=== PATIENT | male | born 1955 | race Caucasian/White ===

== ENCOUNTER 2017-08-05 08:21 | Outpatient (CLI) | payer BC ==
--- NOTE | 2017-08-05 10:50 | CT ---
CT CHEST WITHOUT CONTRAST: Multiple axial tomograms were obtained through the chest without IV enhancement. HISTORY: Followup pulmonary nodule. Comparison is made to the chest CT of 01/14/17. FINDINGS: The rounded mildly spiculated nodule in the lingula is again seen. This measures approximately 10 mm AP dimension in the axial plane and does not appear significantly changed from the prior exam. There is a calcified nodule posterior left lung base measuring approximately 4 mm which is stable. C alcified left hilar lymph nodes are again seen. Images through the upper abdomen are unremarkable. There are granulomatous calcifications in the spleen. IMPRESSION: 1. Stable chest CT findings. The lingular nodule is unchanged. 2. Evidence of prior granulomatous process with calcified left hilar lymph nodes and granulomatous c alcification in the spleen again noted. POS: [facility]
== END 2017-08-05 08:22 | disposition home or self-care (01) ==
LOC: CT 08:21
PROVIDERS: ATTEND Internal Medicine Critical Care Medicine
DX: R91.1 Solitary pulmonary nodule (principal); D73.89 Other diseases of spleen
CPT/HCPCS: 71250

== ENCOUNTER 2017-09-05 07:26 | Outpatient (CLI) | payer BC ==
--- NOTE | 2017-09-05 15:10 | PET ---
NUCLEAR MEDICINE FDG PET CT: (Positron Emission Tomography) DATE: 09/05/17 HISTORY: 62-year-old male with solitary pulmonary nodule. COMPARISON: None. TECHNIQUE: IV injection F-18 Fluorodeoxyglucose (FDG) dose: 12.5 mCi PET and attenuation-correction CT performed from skull base to proximal thighs. FINDINGS: SUV (standard uptake value) numbers given are maximum SUV's: The 10 mm pulmonary nodule located centrally in the left lung, probably in the posterior aspect of th e lingula, is not FDG-avid. There are no abnormally FDG-avid lesions anywhere in the neck, chest, abdomen, or pelvis. There are numerous bilateral renal calculi. IMPRESSION: 1. The 1 cm noncalcified pulmonary nodule in the central, posteromedial aspect of the lingual, is no t hypermetabolic. 2. Recommend 6 month to 1 year follow-up noncontrast chest CT. 3. Bilateral nephrolithiasis (calculus of kidney). SURYA Patel POS: [facility]
== END 2017-09-05 07:27 | disposition home or self-care (01) ==
LOC: PET 07:26
PROVIDERS: ATTEND Internal Medicine Critical Care Medicine
DX: R91.1 Solitary pulmonary nodule (principal); N20.0 Calculus of kidney; E11.9 Type 2 diabetes mellitus without complications
CPT/HCPCS: 78815; A9552

== ENCOUNTER 2018-06-11 06:07 | Emergency (ER) | payer BC ==
[2018-06-11] MEDS ORDERED: Morphine 4 MG/ML VIAL ONE ×2 (06:42→08:35)
[2018-06-11 06:52] LABS: #Eosinphils 0.1 thou/uL (0.0-0.7); #Lymphocytes 1.3 thou/uL (1.20-3.40); #Monocytes 0.5 thou/uL (0.11-0.59); #Neutrophils 12.1 thou/uL (1.40-6.50); %Basophils 0.3 % (0.0-1.0); %Eosinophils 0.5 % (0.0-10.0); %Lymphocytes 9.3 % (21.0-51.0); %Monocytes 3.3 % (0.0-10.0); %Neutrophils 86.5 % (42.0-75.0); Mean Corpuscular HGB CONC 34.1 g/dL (32.0-36.0); Mean Corpuscular Hemoglobin 33.9 pg (27.0-31.0); Mean Corpuscular Volume 99.5 fL (78.0-98.0); Mean Platelet Volume 6.7 fL (7.4-10.4); Platelet Count 234 thou/uL (130-400); RBC Distribution Width 12.1 % (11.5-14.5); Red Blood Cell (RBC) Count 4.72 mill/uL (4.70-6.10)
[2018-06-11 06:58] LABS: Bilirubin Negative (Negative); Blood, Urine Large (Negative); Clarity CLEAR (Clear); Glucose, Urine (Dipstick) 250 mg/dL (Negative); Leukocyte Negative (Negative); Nitrite Negative (Negative); Protein, Urine (Dipstick) Negative (Neg-Trace); Specific Gravity, Urine 1.019 (1.002-1.036)
[2018-06-11 07:00] LABS: Bacteria/HPF None Seen HPF (None Seen); Hyaline Casts/LPF 0-3 HYALINE CAST LPF (0-3 Hyaline); RBC/HPF GREATER THAN 50-TNTC HPF (0-3); Squamous Epithelial None Seen HPF (0-3); WBC/HPF 0-3 HPF (0-3)
[2018-06-11 07:14] LABS: ALT (SGPT) 16 U/L (8-55); AST (SGOT) 15 U/L (5-34); Albumin 4.6 g/dL (3.4-4.8); Alkaline Phosphatase 76 U/L (40-150); Anion Gap 14 mmol/L (10-20); BUN (Urea Nitrogen) 12 mg/dL (8.4-25.7); Bilirubin, Total 0.6 mg/dL (0.2-1.2); Calc. Creatinine Clearance 0 mL/min (70-130); Calcium 9.5 mg/dL (7.8-10.44); Carbon Dioxide 24 mmol/L (23-31); Chloride 100 mmol/L (98-107); Estimated GFR-MDRD 90; Globulin 2.7 g/dL (2.4-3.5); Glucose 178 mg/dL (80-115); Lipase 55 U/L (8-78); Potassium 4.2 mmol/L (3.5-5.1); Protein, Total 7.3 g/dL (5.8-8.1); Sodium 134 mmol/L (136-145)
--- NOTE | 2018-06-11 08:55 | CT ---
ABDOMEN AND PELVIS CT SCAN WITH IV CONTRAST: Date: 06/11/18 HISTORY: 62-year-old male with history of right lower quadrant abdominal pain since this morning. FINDINGS: Lung bases are clear. The visualized liver, gallbladder, pancreas, spleen, and adrenal glands are unr emarkable. Nonobstructing bilateral renal calculi. There is an obstructing proximal right ureteral ca lculus measuring 0.5 x 0.7 cm with some proximal hydronephrosis, as well as some right perirenal fat stranding. Focal 2.9 cm diameter aneurysm of the infrarenal abdominal aorta just above the level of t he bifurcation. No abscess or abnormal fluid collection. No CT evidence for acute appendicitis. Varia ble severity multilevel canal, lateral recess, and foraminal stenosis, particularly at L3-L4 and L4-L 5. Left-sided pseudoarthrosis between the left L5 lateral mass and the left sacral ala with sclerosis and subchondral cystic change. IMPRESSION: 1. Obstructing 0.5 x 0.7 cm diameter proximal right ureteral calculus with proximal upper collecting system dilatation and perirectal fat stranding. Nonobstructing bilateral renal calculi. 2. 2.9 cm diameter aneurysm of the infrarenal abdominal aorta. 3. Lumbar spine disc disease with multilevel up to severe canal, lateral recess, and foraminal steno sis. 4. Other findings as above. POS: [facility]
== END 2018-06-11 09:35 | disposition home or self-care (01) ==
LOC: ERS 06:07
DX: N13.2 Hydronephrosis with renal and ureteral calculous obstruction (principal); K21.9 Gastro-esophageal reflux disease without esophagitis; E11.9 Type 2 diabetes mellitus without complications; F32.9 Major depressive disorder, single episode, unspecified; F17.210 Nicotine dependence, cigarettes, uncomplicated; Z79.84 Long term (current) use of oral hypoglycemic drugs; Z79.82 Long term (current) use of aspirin; Z79.899 Other long term (current) drug therapy
CPT/HCPCS: 74177; 80053; 81003; 81015; 83690; 85025; 93005; 96374; 96376; J2270

== ENCOUNTER 2018-06-19 10:08 | Outpatient (CLI) | payer BC ==
[2018-06-19 11:35] LABS: Hemoglobin 14.8 g/dL (14.0-18.0); Mean Corpuscular HGB CONC 32.5 g/dL (32.0-36.0); Mean Corpuscular Hemoglobin 32.1 pg (27.0-31.0); Mean Corpuscular Volume 98.6 fL (78.0-98.0); Mean Platelet Volume 6.8 fL (7.4-10.4); Platelet Count 237 thou/uL (130-400); Red Blood Cell (RBC) Count 4.62 mill/uL (4.70-6.10); White Blood Cell (WBC) Count 9.5 thou/uL (4.8-10.8)
[2018-06-19 11:37] LABS: Prothrombin Time 13.1 SEC (12.0-14.7)
[2018-06-19 11:52] LABS: Anion Gap 11 mmol/L (10-20); BUN (Urea Nitrogen) 19 mg/dL (8.4-25.7); Calc. Creatinine Clearance 0 mL/min (70-130); Calcium 9.3 mg/dL (7.8-10.44); Carbon Dioxide 24 mmol/L (23-31); Chloride 103 mmol/L (98-107); Estimated GFR-MDRD 54; Glucose 135 mg/dL (80-115); Potassium 4.2 mmol/L (3.5-5.1); Sodium 134 mmol/L (136-145)
== END 2018-06-19 10:09 | disposition home or self-care (01) ==
LOC: LABBT 10:08
PROVIDERS: ATTEND Urology
DX: Z01.812 Encounter for preprocedural laboratory examination (principal); N20.1 Calculus of ureter
CPT/HCPCS: 80048; 85027; 85610; 85730

== ENCOUNTER → 2018-06-26 | Day surgery (SDC) | payer BC ==
[2018-06-19 10:41] VITALS: BMI 26.6
[~2018-06-26] MED LIST: Fentanyl 100 MCG/2 ML VIAL ONE; Iothalamate Meglumine 60% 50 ML VIAL FS ONE; Levofloxacin 500 mg/D5W 100 ml Premix Bag ONE; Lidocaine 1% PF 5 ML VIAL ONE; PROPOFOL 200 MG/20 ML VIAL ONE; ePHEDrine/0.9% NaCl/PF SYRINGE 50 mg/10 ml ONE
--- NOTE | 2018-06-27 07:40 | OP ---
DATE OF PROCEDURE: 06/26/2018 SURGEON: Jeramy Roberson M.D. SERVICE: Urology. ATTENDING: Jeramy Roberson M.D. PREOPERATIVE DIAGNOSIS: Bilateral nephrolithiasis with right ureteral stone. POSTOPERATIVE DIAGNOSES: Bilateral nephrolithiasis with right ureteral stone and right ureteral strictures. PROCEDURE PERFORMED: Cystoscopy with right ureteroscopy, laser lithotripsy, basket extraction of stone, balloon dilation of ureteral stricture, and placement of a 6x26 JJ stent INDICATIONS FOR PROCEDURE: Mr. Uribe a 62-year-old white male who presented to the urology office with right flank pain. CT from prior at the ER had demonstrated bilateral nephrolithiasis with a right ureteral stone. I had recommended removal and he did fail a trial of passage. After discussion of risks and benefits, he has agreed to proceed forward. DESCRIPTION OF PROCEDURE: After identification of armband and verification of consent, the patient was brought back to the operating room and underwent general anesthesia with an endotracheal intubation. He was then placed in dorsal lithotomy position and prepped and draped in usual sterile fashion. After appropriate timeout, a lubricated 20 Burmese rigid cystoscope was introduced per urethra into the bladder and attention turned to the right ureteral orifice. This was cannulated with a 0.035 sensor wire, which was advanced up to the level of the renal pelvis. The cystoscope was then used to empty the bladder and removed leaving the sensor wire in place. A dual-lumen catheter was then passed over the sensor wire into the distal ureter up to the mid ureter where retrograde pyelogram was performed. It showed significant irregularity of the proximal ureter concerning for stricture disease. No obvious filling defect was noted. An Amplatz Super Stiff wire was then passed through the second lumen of the dual lumen up to the level of the renal pelvis and the dual lumen removed. The sensor wire secured to the drapes as a safety wire. An 11/13 x 36 cm ureteral access sheath was advanced over the Super Stiff wire to the level of the mid ureter. It was difficult to advance any further than this. Therefore, the inner cannula was removed leaving the outer sheath in place and the sensor wire in place as a safety wire. A flexible digital ureteroscope was attempted to be passed in, but there was a very narrow concentric ring which was at the maximum point of where the ureteral access sheath could be advanced to just proximal to this was the stone. The scope could not pass and attempts due began to cause urothelial damage. Therefore, the ureteroscope was removed. UroMax balloon dilator was positioned using a Glidewire through the ureteral access sheath over the area of stricture. The balloon was inflated to 12 Burmese 4 cm in length up to 26 atmospheres and then taken down. Reinspection demonstrated patency of the stricture and the stone was encountered. A 200 micron laser fiber was used to fragment the stone and extract the pieces using 1.9 Burmese 0 tip nitinol basket. We then elected to proceed proximally and multiple other strictures were found, which were able to be navigated past with the ureteroscope; however, they were relatively tight. UPJ is also relatively stenotic, but again could allow passage of the ureteroscope. A full pyeloscopy was performed and there was one lower pole stone which was lasered into smaller pieces and the fragments extracted with the same nitinol basket. In the mid pole, there were multiple stones, probably about 6 stones encountered all smoothed and clustered together using the 200 micron laser fiber. All the stones were fragmented down into smaller pieces. A 1.9 Burmese 0 tip nitinol basket was then used to individually extract the pieces, but there were so many stones and due to the numerous passages through the strictured area in the proximal ureter, the area started to become frayed and denuded out of concern for worsening stricture disease and more damage to the urothelium. After approximately 1-1/2 hours of basketing, I elected to stop the procedure to avoid further damage to the urothelium and potential severe stricture disease. We removed probably about 75% of all the stone; however, there are still multiple fragments left, that will probably be best extracted at a later date. So we went ahead and backed out through the ureteroscope and removed the sheath. The cystoscope was backloaded the sensor wire back into the bladder. A 6 x 26 double-J stent was advanced over the sensor wire up to the level of the renal pelvis. The wire was then removed leaving a curl in the renal pelvis and a good curl in the bladder. The bladder was then emptied and the cystoscope removed. The patient was then awakened and taken to PACU for recovery in stable condition. COMPLICATIONS: None. ESTIMATED BLOOD LOSS: Minimal. RETAINED TUBES AND DRAINS: A 6 x 26 double-J stent on the right. SPECIMENS: Stone for stone analysis. DISPOSITION: The patient will be discharged home and we will plan to follow up in approximately a few weeks to discuss going back up on the right side for removal of the remainder of the stone. The patient also has stones in the left which will need to be addressed at a later date as well. NADIA
[2018-07-02 10:24] LABS: CA Oxalate Monohydrate 75 % (.); CA Phosphate 25 % (.); Color Brown (.)
== END ==
LOC: SDC 12:38
PROVIDERS: ATTEND Urology
PROC: 0T768ZZ Dilation of Right Ureter, Via Natural or Artificial Opening Endoscopic (ICD-10-PCS; principal; 2018-06-26)
PROC: 0TF38ZZ Fragmentation in Right Kidney Pelvis, Via Natural or Artificial Opening Endoscopic (ICD-10-PCS; principal; 2018-06-26)
PROC: 0T768DZ Dilation of Right Ureter with Intraluminal Device, Via Natural or Artificial Opening Endoscopic (ICD-10-PCS; principal; 2018-06-26)
PROC: 0TF68ZZ Fragmentation in Right Ureter, Via Natural or Artificial Opening Endoscopic (ICD-10-PCS; principal; 2018-06-26)
DX: N20.2 Calculus of kidney with calculus of ureter (principal); N13.5 Crossing vessel and stricture of ureter without hydronephrosis; F17.210 Nicotine dependence, cigarettes, uncomplicated; E11.40 Type 2 diabetes mellitus with diabetic neuropathy, unspecified; E78.00 Pure hypercholesterolemia, unspecified; Z79.82 Long term (current) use of aspirin; Z79.84 Long term (current) use of oral hypoglycemic drugs; Z79.899 Other long term (current) drug therapy
CPT/HCPCS: 76000; 82365; 88300; C1769; J1956; J2001; J2704; J3010; Q9961

== ENCOUNTER 2018-07-02 10:43 | Outpatient (CLI) | payer BC ==
[2018-07-02 11:55] LABS: Bilirubin Negative (Negative); Blood, Urine Large (Negative); Clarity CLOUDY (Clear); Glucose, Urine (Dipstick) 250 mg/dL (Negative); Leukocyte Large (Negative); Nitrite Negative (Negative); Protein, Urine (Dipstick) 100 mg/dL (Neg-Trace); Urobilinogen 0.2 mg/dL (0.2-1.0)
[2018-07-02 11:56] LABS: Hemoglobin 14.7 g/dL (14.0-18.0); Mean Corpuscular HGB CONC 33.4 g/dL (32.0-36.0); Mean Corpuscular Hemoglobin 33.1 pg (27.0-31.0); Mean Corpuscular Volume 99.2 fL (78.0-98.0); Mean Platelet Volume 6.9 fL (7.4-10.4); Platelet Count 237 thou/uL (130-400); Red Blood Cell (RBC) Count 4.44 mill/uL (4.70-6.10); White Blood Cell (WBC) Count 8.8 thou/uL (4.8-10.8)
[2018-07-02 11:57] LABS: Bacteria/HPF None Seen HPF (None Seen); Hyaline Casts/LPF 4-6 HYALINE CAST LPF (0-3 Hyaline); Pathc Cast-AUWi Flag 1.16 (0-2.49); RBC/HPF GREATER THAN 50-TNTC HPF (0-3); Squamous Epithelial 0-3 HPF (0-3)
[2018-07-02 11:59] LABS: Renal Epithelial None Seen HPF (0-3); Transitional Epithelial NONE SEEN HPF (0-3)
[2018-07-02 12:03] LABS: Anion Gap 11 mmol/L (10-20); BUN (Urea Nitrogen) 16 mg/dL (8.4-25.7); Calc. Creatinine Clearance 0 mL/min (70-130); Calcium 9.3 mg/dL (7.8-10.44); Carbon Dioxide 26 mmol/L (23-31); Chloride 104 mmol/L (98-107); Estimated GFR-MDRD 82; Glucose 186 mg/dL (80-115); PTT 33.8 SEC (22.9-36.1); Potassium 4.4 mmol/L (3.5-5.1); Prothrombin Time 13.2 SEC (12.0-14.7); Sodium 137 mmol/L (136-145)
--- NOTE | 2018-07-02 12:52 | EKG ---
Test Reason : Blood Pressure : / mmHG Vent. Rate : 057 BPM Atrial Rate : 057 BPM P-R Int : 220 ms QRS Dur : 102 ms QT Int : 416 ms P-R-T Axes : 057 059 050 degrees QTc Int : 404 ms Sinus bradycardia with 1st degree A-V block Otherwise normal ECG When compared with ECG of 11-JUN-2018 06:46, No significant change was found Confirmed by DR. Alis LACKEY ([id number]) on 07/02/2018 12:51:26 PM Referred By: TAL Confirmed By:DR. Alis LACKEY
== END 2018-07-02 10:44 | disposition home or self-care (01) ==
LOC: LABBT 10:43
PROVIDERS: ATTEND Urology
DX: Z01.818 Encounter for other preprocedural examination (principal); N13.2 Hydronephrosis with renal and ureteral calculous obstruction
CPT/HCPCS: 80048; 81001; 85027; 85610; 85730; 87086; 93005; 93010

== ENCOUNTER 2018-07-10 05:54 | Day surgery (SDC) | payer BC ==
[2018-07-02 11:01] VITALS: BMI 26.6
[2018-07-10] MEDS ORDERED: Levofloxacin 500 mg/D5W 100 ml Premix Bag ONE (06:08)
[2018-07-10] MEDS ORDERED: Iothalamate Meglumine 60% 50 ML VIAL FS ONE (06:51)
[2018-07-10] MEDS ORDERED: B & O ONE (06:58)
[2018-07-10] MEDS ORDERED: Fentanyl 100 MCG/2 ML VIAL ONE (07:17)
[2018-07-10] MEDS ORDERED: Phenazopyridine HCl 97.5 MG TABLET ONE (08:58)
--- NOTE | 2018-07-10 09:08 | OP ---
DATE OF PROCEDURE: 07/10/2018 SERVICE: Urology. SURGEON: Jeramy Roberson M.D. PREOPERATIVE DIAGNOSIS: Right renal stone. POSTOPERATIVE DIAGNOSIS: Right renal stones. PROCEDURE PERFORMED: Right ureteroscopy, laser lithotripsy, basket extraction of stone and replaceme nt of 6 x 26 double-J stent. INDICATIONS FOR PROCEDURE: Mr. Uribe is a 62-year-old white male who I had previously taken for a cystoscopy with right ureteroscopy and laser lithotripsy of stones. He had incomplete stone remova l and due to significant trauma at the site of the UPJ from repeated stone passage, I elected to abor t the last procedure and bring him back for repeat stone removal. He is now coming in for completion of his right ureteroscopy and removal of remaining stones. Risks and benefits have been discussed a nd he has agreed to proceed forward. DESCRIPTION OF PROCEDURE: After identification of armband and verification of consent, the patient w as brought back to the operating room where he was given general anesthesia with endotracheal intubat ion. He was then placed in dorsal lithotomy position, prepped and draped in the usual sterile fashio n. After appropriate timeout, a lubricated 22-Pashto rigid cystoscope was induced per urethra into t he bladder. Attention was turned to the right ureteral orifice from which there was a stent emanatin g. Flexible graspers were used to grasp the stent and bring it out to the level of the urethral meat us. A 0.035 sensor wire was advanced through the ureteral stent up into the right renal pelvis. The stent was then removed and discarded. A dual-lumen catheter was then advanced over the sensor wire to the level of the proximal ureter and a Super Stiff wire was then passed through the second lumen u p to the level of the renal pelvis. The dual-lumen was then removed and the sensor wire affixed to t he drapes as a safety wire. An 11/13 x 46 cm ureteral access sheath was then advanced over the Super Stiff wire to the level of proximal ureter. Inner cannula and Super Stiff wire were then removed le aving the outer sheath and the sensor wire in place as a safety wire. A disposable flexible ureteros cope was then brought in through the ureteral access sheath into the renal pelvis. A full pyeloscopy was performed, which demonstrated an additional stone in the lower pole along with the remaining sto lars that I had previously incompletely fractured and removed in the mid pole. Some of the larger sto lars were relasered using a 200 micron laser fiber into smaller pieces and then a 1.9 Pashto Zero Tip nitinol basket was used to remove all remaining stones. Upon completion after basketing, there were no stones remaining over approximately 1-2 mm in size. Most stones were approximately 1 mm in size. There was a significant amount of debris and dust, which will likely pass out in the urine spontaneo usly. The remaining fragments were far too small to grasp with a basket and after multiple attempts of attempting to grab these little stones, I felt that they would very likely to be able to pass on t heir own without requiring any further surgery. As such, pull back ureteroscopy was then employed an d no additional stones were found within the ureter. The scope and the sheath were then removed and the cystoscope was backloaded back into the bladder over the sensor wire. A 6 x 26 double-J stent a string attached was advanced over the sensor wire back up into the renal pelvis. The wire was r emoved leaving a good curl in the renal pelvis and good curl in the bladder. The bladder was then em ptied. The cystoscope removed. The string was affixed to the patient's penis with an Op-Site. He w as then awakened and taken to PACU for recovery in stable condition. COMPLICATIONS: None. ESTIMATED BLOOD LOSS: Minimal. RETAINED TUBES AND DRAINS: A 6 x 26 double-J stent on the right. SPECIMENS: Stone for stone analysis. DISPOSITION: The patient will be discharged home and follow up with me in approximately 2-3 weeks instructions to remove his stent on Saturday.
[2018-07-10] MEDS ORDERED: Lidocaine 1% PF 5 ML VIAL ONE (14:45)
[2018-07-10] MEDS ORDERED: ePHEDrine/0.9% NaCl/PF SYRINGE 50 mg/10 ml ONE (14:45)
[2018-07-10] MEDS ORDERED: PROPOFOL 200 MG/20 ML VIAL ONE (14:45)
[2018-07-10] MEDS ORDERED: Glycopyrrolate 0.2 MG/ML 5 ML SYRINGE ONE (14:45)
[2018-07-10] MEDS ORDERED: Ondansetron PF 4 MG/2 ML Vial ONE (14:45)
== END 2018-07-10 12:55 | disposition home or self-care (01) ==
LOC: SDC 05:54
PROVIDERS: ATTEND Urology
PROC: 0TF38ZZ Fragmentation in Right Kidney Pelvis, Via Natural or Artificial Opening Endoscopic (ICD-10-PCS; principal; 2018-07-10)
PROC: 0T768DZ Dilation of Right Ureter with Intraluminal Device, Via Natural or Artificial Opening Endoscopic (ICD-10-PCS; principal; 2018-07-10)
DX: N13.2 Hydronephrosis with renal and ureteral calculous obstruction (principal); E11.40 Type 2 diabetes mellitus with diabetic neuropathy, unspecified; F17.200 Nicotine dependence, unspecified, uncomplicated; Z79.82 Long term (current) use of aspirin; Z79.84 Long term (current) use of oral hypoglycemic drugs; Z79.899 Other long term (current) drug therapy
CPT/HCPCS: 74420; 82365; 88300; 96374; C1769; J1956; J2001; J2405; J2704; J3010; Q9961

== ENCOUNTER 2018-08-04 09:13 | Outpatient (CLI) | payer BC ==
--- NOTE | 2018-08-04 14:12 | CT ---
CT CHEST WITHOUT CONTRAST: Date: 08/04/18 COMPARISON: 08/05/17. 01/14/17, and 09/14/16. CORRELATION; PET imaging dated 09/05/17. FINDINGS: Limited evaluation of the mediastinum due to lack of IV contrast. No mediastinal mass, lymphadenopath y, or hematoma. Heart size is within normal limits. No significant pericardial fluid. Visualized aort a has a normal caliber. No periaortic fat stranding. Visualized upper solid organs are unremarkable. Stable calcified left infrahilar lymph nodes. Axilla are unremarkable. Upper solid organs are unremar kable. No lytic or blastic lesions in the osseous structures. Stable emphysematous changes involving the right upper lobe. There is a stable calcified nodule in th e left lower lobe measuring 6.0 mm. There is a spiculated mass in the left upper lobe measuring 1.0 c m mediolateral x 0.9 cm anterior posterior x 1.1 cm craniocaudal. There is no appreciable change. ON the examination from August 2016, the lesion measured 1.0 x 0.9 x 1.1 cm. Trachea and central bronchi are patent. No pleural effusion or pneumothorax. IMPRESSION: Essentially stable noncalcified nodule in the left upper lobe. There has been almost 2 years of stabi lity. Additionally, the lesion is nonhypermetabolic on PET Imaging performed earlier in 2018. POS: [facility]
== END 2018-08-04 09:14 | disposition home or self-care (01) ==
LOC: CT 09:13
PROVIDERS: ATTEND Internal Medicine Critical Care Medicine
DX: R91.1 Solitary pulmonary nodule (principal)
CPT/HCPCS: 71250

== ENCOUNTER 2018-09-26 12:52 | Outpatient (CLI) | payer BC ==
--- NOTE | 2018-09-26 14:53 | ULT ---
RENAL SONOGRAM: 09/26/2018 HISTORY: Kidney stones. FINDINGS: The right kidney measures 12 cm x 4.5 cm with the left kidney measuring 12.3 cm x 4.7 cm. There is m inimal pelvocaliectasis involving the right kidney without overt hydronephrosis. No left-sided hydro nephrosis is seen. There were nonobstructing bilateral renal calculi seen on the CT examination of 1 , but these calculi are not readily identified on today's examination, although there are a few echogenic foci within the region of the expected location of the right renal pelvis, but no poste rior shadowing is seen to definitively suggest that these represent renal calculi. There is no renal mass or perinephric fluid collection seen bilaterally. The urinary bladder is incompletely distended but is otherwise normal in appearance. The ureteral je ts are visualized bilaterally on color-flow evaluation. IMPRESSION: 1. Mild pelvocaliectasis involving the right kidney without overt hydronephrosis. 2. The patient has bilateral renal calculi on prior CT examination, which are not readily visible on this examination. 3. No left-sided hydronephrosis. 4. Ureteral jets are seen within the urinary bladder bilaterally on color-flow evaluation. POS: [facility]
== END 2018-09-26 12:53 | disposition home or self-care (01) ==
LOC: SCSULT 12:52
PROVIDERS: ATTEND Urology
DX: N13.2 Hydronephrosis with renal and ureteral calculous obstruction (principal)
CPT/HCPCS: 76770

== ENCOUNTER 2019-08-11 12:17 | Outpatient (CLI) | payer MEDICARE, OTHER ==
--- NOTE | 2019-08-11 14:02 | CT ---
CT OF CHEST PERFORMED WITHOUT CONTRAST ENHANCEMENT: Date: 08/11/19 HISTORY: Follow-up pulmonary nodule. COMPARISON: 08/04/18 study. FINDINGS: The lungs are clear of any infiltrative process. There are some emphysematous type lung changes seen. The left upper lobe parahilar shows what I feel is some subtle increase in size. It measures approxim ately 13 x 14 mm on the current study. The 6 mm pleural based calcified nodule is unchanged. I do not appreciate any significant mediastinal or hilar adenopathy. The visualized liver parenchyma shows no focal findings. Right and left adrenal glands are normal. IMPRESSION: 1. Interval slight increase in size of the left upper lobe posterior segment parahilar lung nodule. I would recommend a repeat PET scan for assessment of this. 2. Stable left lower lobe pulmonary nodule. 3. Coronary calcifications. POS: [facility]
== END 2019-08-11 12:18 | disposition home or self-care (01) ==
LOC: BICCT 12:17
PROVIDERS: ATTEND Internal Medicine Critical Care Medicine
DX: R91.1 Solitary pulmonary nodule (principal); I25.10 Atherosclerotic heart disease of native coronary artery without angina pectoris
CPT/HCPCS: 71250

== ENCOUNTER 2020-01-07 09:30 | Outpatient (CLI) | payer MEDICARE, OTHER ==
--- NOTE | 2020-01-07 15:47 | CT ---
CT CHEST WITHOUT CONTRAST: INDICATION: Pulmonary nodule. COMPARISON: Comparison is made to prior chest CT of 08/11/2019 and 08/04/2018. FINDINGS: The nodule in the left upper lobe just above the fissure in the perihilar region is again noted. Th is nodule has increased in size from the 2018 exam but does not appear significantly changed from . It measures approximately 1.3 to 1.4 cm in the axial plane. It is measured today at 1.5 cm craniocaudal in the coronal plane. Evaluation of the lung sloan again shows a pleural-based calcified nodule in the posterior left lowe r lobe which is stable. In the right lung, there is a subtle nodule in the right upper lobe measuring in the 4-5 mm range whi ch appears stable from 08/11/2019. This faint density was present on the 2018 but not as well deline ated. Mediastinum shows nonspecific lymph nodes which appear stable. Images through the upper abdomen are unremarkable. IMPRESSION: 1. The left upper lobe nodule near the fissure in the mid left lung appears stable from 08/11/2019, although it has increased from 2018. 2. Mild 4-5 mm nodule in the right upper lobe appears stable from 08/11/2019. It has slightly incre ased when compared to 2018. 3. The calcified pleural-based nodule in the left lower lobe is stable. Continued close followup of these nodules is recommended. Suggest repeat exam within 6 months. POS: [facility]
== END 2020-01-07 09:31 | disposition home or self-care (01) ==
LOC: BICCT 09:30
PROVIDERS: ATTEND Internal Medicine Critical Care Medicine
DX: R91.1 Solitary pulmonary nodule (principal)
CPT/HCPCS: 71250

== ENCOUNTER 2020-07-27 09:19 | Outpatient (CLI) | payer MEDICARE, OTHER ==
--- NOTE | 2020-07-27 10:36 | CT ---
CT OF THE THORAX WITHOUT IV CONTRAST INDICATION: Follow-up PET-negative pulmonary nodule COMPARISON: PET/CT dated January 14, [address] the chest dated 01/07/2020 and August 04, 2018 FINDINGS: LUNGS: The spiculated pulmonary nodule seen within the left upper lobe, adjacent to the left upper lo be bronchovasculature and the left major fissure, is stable in size measuring 1.5 x 1.3 cm. The small 4 mm pulmonary nodule within the anterior segment of the right upper lobe is stable. Scattered emphysema is stable. Small sub-4 mm pulmonary nodule in the medial aspect of the right upper lobe is stable since 2018. There is a calcified granuloma the left lower lobe. Pleural spaces: Clear Lymph nodes: There are calcified lymph nodes within the left hilar region and mediastinum. Heart and great vessels: There are coronary artery and thoracic aortic calcifications. Upper abdomen: Visualized aspects of the upper abdomen appear within normal limits. Osseous structures: There is scattered degenerative and osteoarthritic change present. No acute fract ure or subluxation demonstrated. IMPRESSION: Stable bilateral upper lobe pulmonary nodules. Continued CT follow-up is recommended.
== END 2020-07-27 09:20 | disposition home or self-care (01) ==
LOC: BICCT 09:19
PROVIDERS: ATTEND Internal Medicine Critical Care Medicine
DX: R91.8 Other nonspecific abnormal finding of lung field (principal)
CPT/HCPCS: 71250

== ENCOUNTER 2021-01-16 10:50 | Outpatient (CLI) | payer MEDICARE, OTHER | END 2021-01-16 10:51 | disposition home or self-care (01) | LOC: BICCT 10:50 | PROVIDERS: ATTEND Internal Medicine Critical Care Medicine | DX: R91.1 Solitary pulmonary nodule (principal); R91.8 Other nonspecific abnormal finding of lung field | CPT/HCPCS: 71250; 82565 ==

== ENCOUNTER 2022-01-16 08:56 | Outpatient (CLI) | payer MEDICARE, OTHER | END 2022-01-16 08:57 | disposition home or self-care (01) | LOC: BICCT 08:56 | PROVIDERS: ATTEND Internal Medicine Critical Care Medicine | DX: R91.1 Solitary pulmonary nodule (principal); J98.4 Other disorders of lung | CPT/HCPCS: 71250 ==

== ENCOUNTER 2022-09-24 07:51 | Outpatient (CLI) | payer MEDICARE, OTHER | END 2022-09-24 07:52 | disposition home or self-care (01) | LOC: RAD 07:51 | PROVIDERS: ATTEND Family Medicine Sports Medicine | DX: M25.561 Pain in right knee (principal) ==

== ENCOUNTER 2022-09-26 09:02 | Outpatient (CLI) | payer MEDICARE, OTHER | END 2022-09-26 09:03 | disposition home or self-care (01) | LOC: BICULT 09:02 | PROVIDERS: ATTEND Family Medicine Sports Medicine | DX: Z13.6 Encounter for screening for cardiovascular disorders (principal); I71.40 Abdominal aortic aneurysm, without rupture, unspecified | CPT/HCPCS: 76775 ==

== ENCOUNTER 2023-10-24 08:45 | Outpatient (CLI) | payer MEDICARE | END 2023-10-24 08:46 | disposition home or self-care (01) | LOC: PET 08:45 | PROVIDERS: ATTEND Internal Medicine Critical Care Medicine | DX: R91.8 Other nonspecific abnormal finding of lung field (principal) | CPT/HCPCS: 78815; A9552 ==

== ENCOUNTER 2024-12-17 10:15 | Outpatient (CLI) | payer MEDICARE | END 2024-12-17 10:16 | disposition home or self-care (01) | LOC: PET 10:15 | PROVIDERS: ATTEND Internal Medicine Hematology & Oncology | DX: C34.90 Malignant neoplasm of unspecified part of unspecified bronchus or lung (principal); J90 Pleural effusion, not elsewhere classified; J93.9 Pneumothorax, unspecified; R59.0 Localized enlarged lymph nodes | CPT/HCPCS: 78815; A9552 ==

== ENCOUNTER → 2025-06-18 | Outpatient (CLI) | payer MEDICARE | LOC: PET 08:00 | PROVIDERS: ATTEND Internal Medicine Hematology & Oncology | DX: C34.11 Malignant neoplasm of upper lobe, right bronchus or lung (principal); C78.2 Secondary malignant neoplasm of pleura; R59.0 Localized enlarged lymph nodes; M89.9 Disorder of bone, unspecified | CPT/HCPCS: 78815; A9552 ==